=== PATIENT | male | born 1975 | race African-American/Black ===

== ENCOUNTER 2017-10-29 05:15 | Emergency (ER) | payer OTHER, BC ==
[2017-10-29 05:25] VITALS: BP 155/100
[2017-10-29] MEDS ORDERED: LIDOCAINE 1% INJ-PF (10 MG/ML) 30 ML SDV INJ ONE (07:24)
--- NOTE | 2017-10-29 07:30 | ER Document Report ---
HPI - HPI Pain Level: Denies Notes: Patient is a 42-year-old male no significant past medical history presents to the ED complaining of a cut to his right inferior knee area status post injury prior to arrival. Patient states that he slipped off of a ramp that he was walking on and cut his knee. Patient states that he has no other pain in his knee and is able to ambulate without any difficulties. Patient states he does not have any pain in his knee or to his leg otherwise. Denies any drug allergies, smoking, IV drug use. No other concerns or complaints. Denies any headache, fever, head injury, neck pain, URI, sore throat, chest pain, palpitations, syncope, cough, shortness of breath, wheeze, dyspnea, abdominal pain, nausea/vomiting/diarrhea, urinary retention, dysuria, hematuria, numbness/ tingling, muscle paralysis/weakness, or rash. Unknown last tetanus. - ROS Systems Reviewed and Negative: Yes All other systems reviewed and negative - NEURO Neurology: DENIES: Headache, Weakness, Vision blurred, Dizzinesss / Vertigo - CARDIOVASCULAR Cardiovascular: DENIES: Chest pain - RESPIRATORY Respiratory: DENIES: Trouble Breathing, Coughing Past Medical History - Social History Smoking Status: Never Smoker Chew tobacco use (# tins/day): No Frequency of alcohol use: None Drug Abuse: None Family History: Reviewed & Not Pertinent Patient has suicidal ideation: No Patient has homicidal ideation: No Renal/ Medical History: Denies: Hx Peritoneal Dialysis Vertical Provider Document - CONSTITUTIONAL Agree With Documented VS: Yes Notes: PHYSICAL EXAMINATION: GENERAL: Well-appearing, well-nourished and in no acute distress. LUNGS: Breath sounds clear to auscultation bilaterally and equal. No wheezes rales or rhonchi. HEART: Regular rate and rhythm without murmurs, rubs, gallops. Musculoskeletal: Rt knee: No obvious swelling, ecchymosis, effusion, or deformity. FROM to passive/active and flexion >90 w/o difficulty or tenderness. Strength 5+/5. N/V intact distal. No bony tenderness. No calf tenderness. + [id number] superficial irregular laceration to the anterior inferior knee area. No active bleeding. Extremities: No cyanosis, clubbing, or edema b/l. Peripheral pulses 2+. Capillary refill less than 3 seconds. Mg neg b/l. NEUROLOGICAL: Normal speech, normal gait. Normal sensory, motor exams PSYCH: Normal mood, normal affect. SKIN: see above. Warm, Dry, normal turgor, no rashes or lesions noted. Course - Re-evaluation Re-evalutation: 10/29/17 08:30 Patient is an afebrile, well-hydrated, 42-year-old male who presents to the ED with left a laceration to the left anterior inferior knee. Vitals are acceptable without any significant tachycardia, tachypnea, or hypoxia. PE is otherwise unremarkable for any neurovascular compromise, obvious tendon/ ligament rupture, obvious fracture/dislocation, septic joint. [place] knee rules negative. no imaging warranted at this time. Patient declined any Tylenol or ice. Patient is nontoxic-appearing. Patient is able to ambulate and weight-bear w/o limping. Wound was thoroughly irrigated and cleansed. Wound edges were approximated appropriately utilizing 5 simple interrupted sutures. Wound dressing was placed and wound instructions reviewed. Tetanus was updated today. I will be sending him home with a prescription for Keflex. Sutures will need removed in 10-12 days. No other labs or imaging warranted at this time based on H&P. Conservative measures otherwise for symptoms. Recheck with your PCM in 2-3 days. Consider consult orthopedics. Return to the ED with any worsening/concerning symptoms otherwise as reviewed in discharge. Patient is in agreement. - Vital Signs Vital signs: Temp Pulse Resp BP Pulse Ox 99.2 F 77 16 155/100 H 98 10/29/17 05:22 10/29/17 05:22 10/29/17 05:22 10/29/17 05:22 10/29/17 05:22 Procedures - Laceration/Wound Repair Left Knee Time completed: 08:25 Wound length (cm): 4 Wound's Depth, Shape: Superficial, Irregular Laceration pre-procedure: Sterile PPE donned, Sterile drapes applied, Other - chlorhexadine/saline Anesthetic type: 1% Lidocaine Volume Anesthetic (mLs): 8 Wound explored: Clean, No foreign body removed Irrigated w/ Saline (mLs): 240 Wound Debrided: Minimal Wound Repaired With: Sutures Suture Size/Type: 4:0, Nylon Number of Sutures: 5 Layer Closure?: No Post-procedure wound care: Sterile dressing applied Post-procedure NV exam normal: Yes Complications: No Discharge - Discharge Clinical Impression: Laceration of left knee without complication Qualifiers: Encounter type: initial encounter Qualified Code(s): S81.012A - Laceration without foreign body, left knee, initial encounter Condition: Stable Disposition: HOME, SELF-CARE Instructions: Antibiotic Ointment Protection ([facility]), Laceration Care ([facility]), Prophylactic Antibiotic ([facility]), Soap Cleansing ([facility]), Tetanus Immunization Given ([facility]) Additional Instructions: Do not shower or bathe for 24 hours. After 24 hours you may shower but no submersion of the wound under water. Keep the original dressing on the wound for 24 hours unless the drainage soaks through. Change the dressing daily thereafter and keep the knots of the suture material clean from any dried discharge. You may leave the wound open to the air once there is no more discharge. Return to the ED and/or your PCM in 2-3 days for a recheck. Monitor for any signs of worsening pain or redness, purulent drainage, streaks, and/or fever. Return to the ED if noticing any of the above symptoms or as needed. Take medications as directed. Your sutures will need to be removed in 10-12 days. Prescriptions: Cephalexin Monohydrate [Keflex 500 mg Capsule] 500 mg PO TID #21 capsule Forms: Elevated Blood Pressure Referrals: [facility] [Provider Group] - Follow up as needed
[2017-10-29] MEDS ORDERED: DIPH/PERTUSS(ACELL)/TETANUS VAC/PF 0.5 ML SYR (>=10YO) IM ONE (07:32)
== END 2017-10-29 08:35 | disposition home or self-care (01) ==
LOC: ER 05:15
DX: S81.012A Laceration without foreign body, left knee, initial encounter (principal); W10.2XXA Fall (on)(from) incline, initial encounter; Z23 Encounter for immunization
CPT/HCPCS: 90471; 90715; 99283